=== PATIENT | male | born 1985 | race African-American/Black ===

== ENCOUNTER 2021-01-08 19:16 | Emergency (ER) | payer MEDICAID ==
[~2021-01-08] VITALS: Ht 185.4 cm; Wt 95.0 kg
[2021-01-08] MEDS ORDERED: ACETAMINOPHEN 325 MG TABLET PO ONE (20:30)
[2021-01-08] MEDS ORDERED: LIDOCAINE/PF 1% 2 ML VIAL IM ONE (22:00)
[2021-01-08] MEDS ORDERED: CefTRIAXone SODIUM 1 GM/VIAL IM ONE (22:00)
[2021-01-08 22:14] VITALS: BP 148/78
== END 2021-01-08 22:00 | disposition home or self-care (01) ==
LOC: EMS 19:16
DX: L03.116 Cellulitis of left lower limb (principal); B35.3 Tinea pedis; F12.90 Cannabis use, unspecified, uncomplicated
CPT/HCPCS: 73610; 73630; 93971; 96372; 99284; J0696; J3490